=== PATIENT | male | born 2000 | race Caucasian/White ===

== ENCOUNTER 2023-01-08 10:40 | Emergency (ER) | payer SELFPAY ==
[~2023-01-08] VITALS: Ht 175.3 cm; Wt 73.0 kg
[2023-01-08 11:00] VITALS: O2SAT 100
[2023-01-08] MEDS ORDERED: LIDOCAINE HCL/PF 1% 10 MG/ML 5ML VIAL INFIL ONE (11:30)
[2023-01-08] MEDS ORDERED: BACITRACIN ZINC OINT UDPKT TOP ONE (11:30)
[2023-01-08] MEDS ORDERED: BO1 TP (13:30)
[2023-01-08] MEDS ORDERED: IBUP-2029 MT (13:30)
[2023-01-08 13:47] VITALS: BP 118/56; PULSE 62; RESP 17; TEMP 99
== END 2023-01-08 13:49 | disposition home or self-care (01) ==
LOC: ER 11:09
DX: S61.232A Puncture wound without foreign body of right middle finger without damage to nail, initial encounter (principal); T16.1XXA Foreign body in right ear, initial encounter; X58.XXXA Exposure to other specified factors, initial encounter; Y93.89 Activity, other specified; Y92.89 Other specified places as the place of occurrence of the external cause; Y99.8 Other external cause status
CPT/HCPCS: 73140; 69200; 99284; J3490; Z7610; 99283